=== PATIENT | female | born 1960 | race Caucasian/White ===

== ENCOUNTER 2021-09-22 10:25 | Emergency (ER) | payer BC ==
[~2021-09-22] VITALS: Ht 167.6 cm; Wt 90.7 kg
[2021-09-22] MEDS ORDERED: WARFARIN SODIUM5 MG PO (10:40)
[2021-09-22] MEDS ORDERED: RANEXA500 MG PO (10:41)
[2021-09-22] MEDS ORDERED: IMURAN50 MG PO (10:42)
[2021-09-22] MEDS ORDERED: TOPROL XL25 M1 PO (10:42)
[2021-09-22] MEDS ORDERED: FLECAINIDE ACET50 MG PO (10:43)
[2021-09-22] MEDS ORDERED: ZYRTEC10 M3 PO (10:43)
== END 2021-09-22 12:56 | disposition home or self-care (01) ==
LOC: ER 10:25
DX: S59.912A Unspecified injury of left forearm, initial encounter (principal); I10 Essential (primary) hypertension; Z88.0 Allergy status to penicillin; Z88.6 Allergy status to analgesic agent; I73.9 Peripheral vascular disease, unspecified